=== PATIENT | male | born 1955 | race African-American/Black ===

== ENCOUNTER 2020-07-24 13:55 | Emergency (ER) | payer BC ==
[~2020-07-24] VITALS: Ht 160 cm; Wt 106.0 kg
[2020-07-24] MEDS ORDERED: AMLODIPINE 5MG TABLET PO ONE (22:30)
[2020-07-24] MEDS ORDERED: CLONIDINE 0.3MG TABLET PO ONE (22:30)
[2020-07-24 23:11] LABS: BASOPHILS % 1.1 % (0.0-2.0); EOSINOPHILS % 3.5 % (0.0-5.0); HEMATOCRIT. 39.1 % (42.0-52.0); LYMPHOCYTES % 30.4 % (20.0-50.0); MEAN CORPUSCULAR HEMOGLOBIN 30.1 pg (28.0-32.0); MEAN CORPUSCULAR VOLUME 84.3 fL (80.0-94.0); MEAN PLATELET VOLUME 7.7 fl (7.4-10.4); MONOCYTES % 12.7 % (2.0-8.0); NEUTROPHILS % 52.3 % (40.0-76.0); PLATELET 304 x1000/uL (130-400); RED BLOOD CELL COUNT 4.64 mill/uL (4.7-6.1); RED CELL DISTRIBUTION WIDTH 13.3 % (11.6-14.6)
[2020-07-24 23:18] LABS: CHLORIDE 104 mEq/L (98-107)
[2020-07-25] MEDS ORDERED: POTASSIUM CHLORIDE 20MEQ TABLET SR PO ONE (00:30)
[2020-07-25] MEDS ORDERED: CLON0.3T MT (00:32)
[2020-07-25] MEDS ORDERED: FURO-151 MT (00:32)
[2020-07-25] MEDS ORDERED: AMLO5TAB4 MT (00:32)
[2020-07-25 00:39] VITALS: BP 146/91
== END 2020-07-25 00:50 | disposition home or self-care (01) ==
LOC: ER 13:55
DX: I10 Essential (primary) hypertension (principal); Z98.890 Other specified postprocedural states; Z79.899 Other long term (current) drug therapy
CPT/HCPCS: 36415; 80053; 85025; 93005; 99284